=== PATIENT | female | born 1990 | race Caucasian/White ===

== ENCOUNTER 2019-04-03 16:40 | Outpatient (CLI) | payer BC, SELFPAY ==
[2019-04-03] VITALS (9 sets, daily range): BP systolic 126–142; BP diastolic 70–78; PULSE 75–83; TEMP 98.7; BMI 36.6
[2019-04-03 17:44] LABS: Hemoglobin 12.3 g/dL (12.0-15.0); Mean Corp Hgb Conc 33.2 g/dL (32-36); Mean Corpuscular Hgb 31.4 pg (27.0-32.0); Mean Corpuscular Volume 94.4 fL (81-99); Mean Platelet Vol. 10.5 fl (6.2-12.0); Platelet Count 240 K/mm3 (150-450); RBC Distribution Width CV 13.6 % (11.6-14.6); RBC Distribution Width SD 44.9 fl (35.1-43.9); Red Blood Count 3.92 M/mm3 (4.2-5.4); White Blood Count 11.4 K/mm3 (4.4-11.0)
[2019-04-03 18:16] LABS: Prothrombin Time (Protime)PT. 12.7 SECONDS (11.7-14.9)
[2019-04-03 18:26] LABS: AST(SGOT) 28 U/L (15-37); Alanine Aminotransfer ALT/SGPT 47 U/L (13-56); Creatinine, Serum 0.58 mg/dL (0.55-1.02); EST Glomerular Filtration Rate 132 mL/min (>60); Est Glom Filt Rate - Afr Amer 159 mL/min (>60); Estimated Creatinine Clearance 140.43 ml/min; Uric Acid 4.5 mg/dL (2.6-6.0)
[2019-04-03 18:29] LABS: Protein, Urine (Random) 9.9 mg/dL (<11.9); Protein:Creat Ratio 169 mg/g CRE (0-200)
--- NOTE | 2019-04-04 05:34 | OB.TRI.NOTE ---
History of Present Illness Date of Service: 04/03/19 Was patient seen by the physician?: No Reason For Visit: Edema, possible preeclampsia Date of Service: 04/03/19 Final OEWN: 06/14/19 Gestational age: 29 Weeks and 5 Days History of Present Illness: presented from office. Intermittent WADE, edema, leg pain., Allergies No Known Allergies Allergy (Verified 04/03/19 17:08) Laboratory Studies: Laboratory Tests 04/03/19 04/03/19 04/03/19 Range/Units 17:50 17:20 17:20 WBC (4.4-11.0) K/mm3 RBC (4.2-5.4) M/mm3 Hgb (12.0-15.0) g/dL Hct (37-47) % MCV (81-99) fL MCH (27.0-32.0) pg MCHC (32-36) g/dL RDW Std Deviation (35.1-43.9) fl RDW Coeff of Alta (11.6-14.6) % Plt Count (150-450) K/mm3 MPV (6.2-12.0) fl PT 12.7 (11.7-14.9) SECONDS INR 1.0 APTT 26.0 (24.1-36.2) Seconds Creatinine 0.58 (0.55-1.02) mg/dL Estim Creat Clear Calc 140.43 ml/min Est GFR (MDRD) Af Amer 159 (>60) mL/min Est GFR (MDRD) Non-Af 132 (>60) mL/min Uric Acid 4.5 (2.6-6.0) mg/dL AST 28 (15-37) U/L ALT 47 (13-56) U/L U Random Total Protein 9.9 (<11.9) mg/dL Urine Creatinine 58.60 (NO RANGE EST.) mg/dL Protein/Creatinin Ratio 169 (0-200) mg/g CRE 04/03/19 Range/Units 17:20 WBC 11.4 H (4.4-11.0) K/mm3 RBC 3.92 L (4.2-5.4) M/mm3 Hgb 12.3 (12.0-15.0) g/dL Hct 37.0 (37-47) % MCV 94.4 (81-99) fL MCH 31.4 (27.0-32.0) pg MCHC 33.2 (32-36) g/dL RDW Std Deviation 44.9 H (35.1-43.9) fl RDW Coeff of Alta 13.6 (11.6-14.6) % Plt Count 240 (150-450) K/mm3 MPV 10.5 (6.2-12.0) fl PT (11.7-14.9) SECONDS INR APTT (24.1-36.2) Seconds Creatinine (0.55-1.02) mg/dL Estim Creat Clear Calc ml/min Est GFR (MDRD) Af Amer (>60) mL/min Est GFR (MDRD) Non-Af (>60) mL/min Uric Acid (2.6-6.0) mg/dL AST (15-37) U/L ALT (13-56) U/L U Random Total Protein (<11.9) mg/dL Urine Creatinine (NO RANGE EST.) mg/dL Protein/Creatinin Ratio (0-200) mg/g CRE NST - FHR Rate Baby A Baseline: 145 Variability:: Moderate Accelerations:: 15 x 15 Decelerations:: None NST Reactive:: Yes, Appropriate for gestational age FHR Category:: Category I Uterine Activity:: quiet Impression/Plan 28 YOF @ 29 5/7 weeks for possible preeclampsia Labs normal BPs normal here Home w/ preeclampsia precautions, d/w her in office decrease sodium, push water, compression stockings. Close follow up. Ok for off work tomorrow if needs b/c of leg pain and edema of right slightly more than left will get dupplex US of that tomorrow (too late tonight unless goes to ED and since suspicion is low ok to wait). Patient agrees w/ plan
== END 2019-04-03 19:00 | disposition home or self-care (01) ==
LOC: WPOUT 16:46 → WP 16:46
PROVIDERS: PCP Family Medicine; Referring Provider Obstetrics & Gynecology; Visit Provider Obstetrics & Gynecology
DX: O26.893 Other specified pregnancy related conditions, third trimester (principal); R51 Headache; M79.606 Pain in leg, unspecified; R60.0 Localized edema; Z3A.29 29 weeks gestation of pregnancy
CPT/HCPCS: 36415; 59025; 59050; 82565; 82570; 84156; 84450; 84460; 84550; 85027; 85610; 85730; 99218; G0378

== ENCOUNTER → 2019-04-04 08:54 | Outpatient (CLI) | payer BC, SELFPAY ==
[2019-04-03 17:07] VITALS: BMI 36.6
--- NOTE | 2019-04-04 08:59 | VDLE_ITS ---
Reason For Study: Swelling RIGHT LEFT GSV is normal. CFV is compressible, spontaneous, phasic, CFV is compressible, spontaneous, phasic, competent, and demonstrates normal competent and demonstrates normal augmentation. augmentation. FV is compressible, spontaneous, phasic, competent and demonstrates normal augmentation. POP V is compressible, spontaneous, phasic, competent and demonstrates normal augmentation. T/P Trunk is compressible. PTV is compressible. RT PerV is compressible. Procedure Exam performed in department. A preliminary report was called and/or faxed to [facility]. Interpretation Summary Deep veins of the right lower extremity are patent and compressible segmentally. There is no evidence of right lower extremity deep vein thrombosis. Valvular competence appears intact within the proximal deep venous system on the right . The right great saphenous vein appears patent and compressible segmentally. Ordering Physician: Thelma Artis Referring Physician: Kandice Balderas Performed By: Amy Long RVT
== END ==
PROVIDERS: PCP Family Medicine; Referring Provider Obstetrics & Gynecology; Visit Provider Obstetrics & Gynecology
DX: M79.89 Other specified soft tissue disorders (principal)
CPT/HCPCS: 93971

== ENCOUNTER 2019-04-27 20:35 | Outpatient (CLI) | payer BC, SELFPAY ==
[2019-04-03 17:07] VITALS: BMI 36.6
[2019-04-27 20:44] VITALS: BMI 37.3
[2019-04-27 20:51] VITALS: PULSE 69; O2SAT 97
[2019-04-27 20:52] VITALS: BP 161/101; PULSE 69; TEMP 36.6; O2SAT 97
[2019-04-27 21:03] VITALS: BP 153/97; PULSE 74
[2019-04-27 21:13] VITALS: BP 148/92; PULSE 73
[2019-04-27 21:21] LABS: Hematocrit 37.8 % (37-47); Mean Corp Hgb Conc 34.4 g/dL (32-36); Mean Corpuscular Hgb 32.5 pg (27.0-32.0); Mean Corpuscular Volume 94.5 fL (81-99); Mean Platelet Vol. 10.8 fl (6.2-12.0); Platelet Count 188 K/mm3 (150-450); RBC Distribution Width CV 13.4 % (11.6-14.6); RBC Distribution Width SD 45.9 fl (35.1-43.9); White Blood Count 10.4 K/mm3 (4.4-11.0)
[2019-04-27 21:29] VITALS: BP 144/93; PULSE 75
[2019-04-27 21:32] LABS: Partial Thromboplast Time 25.7 Seconds (24.1-36.2); Prothrombin Time (Protime)PT. 12.7 SECONDS (11.7-14.9)
[2019-04-27 21:35] LABS: AST(SGOT) 24 U/L (15-37); Alanine Aminotransfer ALT/SGPT 22 U/L (13-56); Creatinine, Serum 0.58 mg/dL (0.55-1.02); EST Glomerular Filtration Rate 132 mL/min (>60); Est Glom Filt Rate - Afr Amer 160 mL/min (>60); Estimated Creatinine Clearance 140.43 ml/min; Uric Acid 5.1 mg/dL (2.6-6.0)
[2019-04-27 21:45] VITALS: BP 147/92; PULSE 76
[2019-04-27] MEDS: Betamethasone/Betamethasone 30 MG/5 ML Vial 12 MG IM (22:03)
--- NOTE | 2019-04-27 22:07 | OB.TRI.HP_ITS ---
- Problem List (1) Elevated BP without diagnosis of hypertension Status: Acute (2) Edema of both feet Status: Acute History of Present Illness Date of Service: 04/27/19 Was patient seen by the physician?: Yes Reason For Visit: PINO OUT [facility] Date of Service: 04/27/19 Final OWEN: 06/14/19 Gestational age: 33 Weeks and 1 Days History of Present Illness: Patient is a 28 yo at 33.1 weeks gestation that came in to triage for evaluation of increased blood pressures at home last night and tonight. Patient was seen in office last week and [facility] labs were drawn. Labs wnl, but P/C ratio was 0.5. Patient scheduled weekly visits with weekly NSTs. She was to take BP at home 2-3x day and keep written log. Patient reports pressures reaching 160's/100 today. Denies any headaches, vision changes or epigastric pain. Bilateral feet 2+ edema. Patient denies any loss of fluid, vaginal bleeding or contractions. Positive movement. Allergies No Known Allergies Allergy (Verified 04/27/19 20:45) - Pertinent Past Medical History Medical History: Past Medical History (Last Updated 04/27/19 @ 22:19 by Taryn Calderón CNM) Anxiety Laboratory Studies: Laboratory Tests 04/27/19 04/27/19 04/27/19 Range/Units 21:10 21:10 21:10 WBC 10.4 (4.4-11.0) K/mm3 RBC 4.00 L (4.2-5.4) M/mm3 Hgb 13.0 (12.0-15.0) g/dL Hct 37.8 (37-47) % MCV 94.5 (81-99) fL MCH 32.5 H (27.0-32.0) pg MCHC 34.4 (32-36) g/dL RDW Std Deviation 45.9 H (35.1-43.9) fl RDW Coeff of Alta 13.4 (11.6-14.6) % Plt Count 188 (150-450) K/mm3 MPV 10.8 (6.2-12.0) fl PT 12.7 (11.7-14.9) SECONDS INR 1.0 APTT 25.7 (24.1-36.2) Seconds Creatinine 0.58 (0.55-1.02) mg/dL Estim Creat Clear Calc 140.43 ml/min Est GFR (MDRD) Af Amer 160 (>60) mL/min Est GFR (MDRD) Non-Af 132 (>60) mL/min Uric Acid 5.1 (2.6-6.0) mg/dL AST 24 (15-37) U/L ALT 22 (13-56) U/L Review of Systems Constitutional: Denies: Anorexia, Fever, Malaise Eyes: Denies: Blurred vision, Double vision, Vision Change Cardiovascular: Reports: Edema Respiratory: Denies: Cough, Shortness of Breath Gastrointestinal: Denies: Abdominal Pain Genitourinary: Denies: Dysuria Neurological: Denies: Blurred vision, Double vision, Headaches Physical Exam Vitals: Vital Signs Temp Pulse BP Pulse Ox 97.9 F 76 147/92 H 97 04/27/19 20:52 04/27/19 21:45 04/27/19 21:45 04/27/19 20:52 General: Alert, Oriented x3 Cardiovascular: Regular Rhythm Lungs: Clear to auscultation, Normal air movement Abdomen: Non Tender, Gravid, Obese Extremities:: Deep tendon reflexes - +2, Other - Edema bilateral feet and ankles Neurological: Cranial nerves II-XII grossly intact, Deep Tendon Reflexes 2+/4 and Symmetrical NST - FHR Rate Baby A Baseline: 135 Variability:: Moderate Accelerations:: 15 x 15 Decelerations:: None NST Reactive:: Yes FHR Category:: Category I Uterine Activity:: None noted Impression/Plan Patient is a 28 year old that is 33.1 weeks gestation here for increased blood pressures at home. Proteinuria (P/C ratio of 0.5) on Sunday in the office. A/P Increased BP with no diagnosis of hypertension PIH labs drawn and were wnl Celestone 12mg IM x1 given and patient will return tomorrow for 2nd dose NST- reactive, category 1 tracing Preeclampsia precautions given to patient and Continue plan of care for outpatient weekly OB visits and NSTs Patient to continue home blood pressures 2x/Day and record results Discharge home
== END 2019-04-27 22:17 | disposition home or self-care (01) ==
LOC: WPOUT 20:40 → WP 20:41
PROVIDERS: Advanced Practice Midwife; PCP Family Medicine; Visit Provider Obstetrics & Gynecology
DX: O26.893 Other specified pregnancy related conditions, third trimester (principal); R03.0 Elevated blood-pressure reading, without diagnosis of hypertension; O12.13 Gestational proteinuria, third trimester; O99.343 Other mental disorders complicating pregnancy, third trimester; F41.9 Anxiety disorder, unspecified; Z3A.33 33 weeks gestation of pregnancy
CPT/HCPCS: 36415; 59025; 59050; 82565; 84450; 84460; 84550; 85027; 85610; 85730; 96372; 99218; G0378; J0702

== ENCOUNTER 2019-04-28 21:10 | Outpatient (CLI) | payer BC, SELFPAY ==
[2019-04-27 20:44] VITALS: BMI 37.3
[2019-04-28 21:21] VITALS: BMI 37.8
[2019-04-28] MEDS: Betamethasone/Betamethasone 30 MG/5 ML Vial 12 MG IM (21:38)
--- NOTE | 2019-05-08 09:37 | OB.TRI.NOTE ---
History of Present Illness Date of Service: 04/29/19 Was patient seen by the physician?: No Reason For Visit: CELESTONE INJECTION Date of Service: 04/29/19 Gestational age: 33 2/7 Allergies No Known Allergies Allergy (Verified 04/28/19 21:22) - Pertinent Past Medical History Medical History: Past Medical History (Last Updated 04/27/19 @ 22:19 by Taryn Calderón CNM) Anxiety Impression/Plan 33 week high risk primigravida, preeclampsia without severe features, celestone injection
== END 2019-04-28 21:40 | disposition home or self-care (01) ==
LOC: WPOUT 21:12 → OBT 21:13
PROVIDERS: PCP Family Medicine; Referring Provider Obstetrics & Gynecology; Visit Provider Obstetrics & Gynecology
DX: O14.03 Mild to moderate pre-eclampsia, third trimester (principal); Z3A.33 33 weeks gestation of pregnancy
CPT/HCPCS: 96372; 99218; G0378; J0702

== ENCOUNTER 2019-05-13 09:20 | Outpatient (CLI) | payer BC, SELFPAY ==
[2019-05-13] VITALS (13 sets, daily range): BP systolic 123–154; BP diastolic 67–92; PULSE 84–100; TEMP 36.9–37.7; O2SAT 92–98; BMI 38.3
[2019-05-13 10:00] LABS: Hematocrit 39.1 % (37-47); Hemoglobin 13.3 g/dL (12.0-15.0); Mean Corpuscular Hgb 32.6 pg (27.0-32.0); Mean Corpuscular Volume 95.8 fL (81-99); Mean Platelet Vol. 10.7 fl (6.2-12.0); Platelet Count 167 K/mm3 (150-450); RBC Distribution Width CV 13.4 % (11.6-14.6); Red Blood Count 4.08 M/mm3 (4.2-5.4); White Blood Count 13.4 K/mm3 (4.4-11.0)
[2019-05-13 10:03] LABS: Protein, Urine (Random) 795.5 mg/dL (<11.9); Protein:Creat Ratio 5642 mg/g CRE (0-200)
[2019-05-13 10:10] LABS: International Normalized Ratio 0.9; Prothrombin Time (Protime)PT. 11.7 SECONDS (11.7-14.9)
[2019-05-13 10:11] LABS: Partial Thromboplast Time 25.6 Seconds (24.1-36.2)
[2019-05-13 10:12] LABS: AST(SGOT) 52 U/L (15-37); Alanine Aminotransfer ALT/SGPT 36 U/L (13-56); Creatinine, Serum 0.65 mg/dL (0.55-1.02); EST Glomerular Filtration Rate 114 mL/min (>60); Est Glom Filt Rate - Afr Amer 138 mL/min (>60); Estimated Creatinine Clearance 124.19 ml/min; Uric Acid 5.8 mg/dL (2.6-6.0)
[2019-05-13] MEDS: Acetaminophen 500 MG Tablet 1000 MG PO (14:46)
[2019-05-13 16:19] LABS: Hematocrit 39.4 % (37-47); Hemoglobin 13.2 g/dL (12.0-15.0); Mean Corp Hgb Conc 33.5 g/dL (32-36); Mean Corpuscular Hgb 31.9 pg (27.0-32.0); Mean Corpuscular Volume 95.2 fL (81-99); Mean Platelet Vol. 10.8 fl (6.2-12.0); Platelet Count 170 K/mm3 (150-450); RBC Distribution Width CV 13.3 % (11.6-14.6); RBC Distribution Width SD 46.5 fl (35.1-43.9); Red Blood Count 4.14 M/mm3 (4.2-5.4); White Blood Count 10.8 K/mm3 (4.4-11.0)
[2019-05-13 16:32] LABS: AST(SGOT) 45 U/L (15-37); Alanine Aminotransfer ALT/SGPT 37 U/L (13-56); Creatinine, Serum 0.59 mg/dL (0.55-1.02); EST Glomerular Filtration Rate 128 mL/min (>60); Est Glom Filt Rate - Afr Amer 155 mL/min (>60); Estimated Creatinine Clearance 136.82 ml/min; Uric Acid 5.9 mg/dL (2.6-6.0)
--- NOTE | 2019-05-13 20:04 | OB.TRI.NOTE ---
History of Present Illness Date of Service: 05/13/19 Was patient seen by the physician?: Yes Reason For Visit: R/O PREECLAMPSIA Date of Service: 05/13/19 Final OWEN: 06/14/19 Final OWEN Source: US <20 weeks Gestational age: 35 Weeks and 3 Days History of Present Illness: 29-year-old 2 para 0 at 35-3/7 weeks presents today for increased blood pressures. Patient has had preeclampsia without severe features for a couple of weeks. She is received betamethasone in the past x2. Today she reported increased blood pressures and 1 sent to labor and delivery for monitoring and labs. Complains of some epigastric pain that gets worse when she walks. She states this started this morning. She had a similar episode a couple of weeks ago that resolved after 1 day spontaneously. She states her pain is now 2 out of 10 in its more midline. Denies any current headache. She had a migraine headache 5 days ago. Has had good movement. She has had some pedal edema Allergies No Known Allergies Allergy (Verified 05/13/19 09:34) - Pertinent Past Medical History Medical History: Past Medical History (Last Updated 04/27/19 @ 22:19 by Taryn Calderón CNM) Anxiety Laboratory Studies: Laboratory Tests 05/13/19 05/13/19 05/13/19 Range/Units 16:13 16:13 09:49 WBC 10.8 (4.4-11.0) K/mm3 RBC 4.14 L (4.2-5.4) M/mm3 Hgb 13.2 (12.0-15.0) g/dL Hct 39.4 (37-47) % MCV 95.2 (81-99) fL MCH 31.9 (27.0-32.0) pg MCHC 33.5 (32-36) g/dL RDW Std Deviation 46.5 H (35.1-43.9) fl RDW Coeff of Alta 13.3 (11.6-14.6) % Plt Count 170 (150-450) K/mm3 MPV 10.8 (6.2-12.0) fl PT (11.7-14.9) SECONDS INR APTT (24.1-36.2) Seconds Creatinine 0.59 0.65 (0.55-1.02) mg/dL Estim Creat Clear Calc 136.82 124.19 ml/min Est GFR (MDRD) Af Amer 155 138 (>60) mL/min Est GFR (MDRD) Non-Af 128 114 (>60) mL/min Uric Acid 5.9 5.8 (2.6-6.0) mg/dL AST 45 H 52 H (15-37) U/L ALT 37 36 (13-56) U/L U Random Total Protein (<11.9) mg/dL Urine Creatinine (NO RANGE EST.) mg/dL Protein/Creatinin Ratio (0-200) mg/g CRE 05/13/19 05/13/19 05/13/19 Range/Units 09:49 09:49 09:30 WBC 13.4 H (4.4-11.0) K/mm3 RBC 4.08 L (4.2-5.4) M/mm3 Hgb 13.3 (12.0-15.0) g/dL Hct 39.1 (37-47) % MCV 95.8 (81-99) fL MCH 32.6 H (27.0-32.0) pg MCHC 34.0 (32-36) g/dL RDW Std Deviation 47.0 H (35.1-43.9) fl RDW Coeff of Alta 13.4 (11.6-14.6) % Plt Count 167 (150-450) K/mm3 MPV 10.7 (6.2-12.0) fl PT 11.7 (11.7-14.9) SECONDS INR 0.9 APTT 25.6 (24.1-36.2) Seconds Creatinine (0.55-1.02) mg/dL Estim Creat Clear Calc ml/min Est GFR (MDRD) Af Amer (>60) mL/min Est GFR (MDRD) Non-Af (>60) mL/min Uric Acid (2.6-6.0) mg/dL AST (15-37) U/L ALT (13-56) U/L U Random Total Protein 795.5 H (<11.9) mg/dL Urine Creatinine 141.00 (NO RANGE EST.) mg/dL Protein/Creatinin Ratio 5642 H (0-200) mg/g CRE Review of Systems Constitutional: Denies: Chills, Fever Eyes: Denies: Blurred vision Cardiovascular: Denies: Chest Pain Respiratory: Reports: Shortness of breath upon exertion. Denies: Cough Gastrointestinal: Denies: Constipation, Diarrhea, Dyspepsia, Nausea, Vomiting Skin: Denies: Rash Physical Exam Vitals: Vital Signs Temp Pulse BP Pulse Ox 98.8 F 86 141/91 H 96 05/13/19 15:26 05/13/19 15:26 05/13/19 15:26 05/13/19 12:24 NST - FHR Rate Baby A Baseline: 140 Variability:: Moderate Accelerations:: 15 x 15 Decelerations:: Variable - early in monitoring, NST Reactive:: Yes FHR Category:: Category I - for > 20 min before d/c Uterine Activity:: no regular ctxs Impression/Plan 29-year-old 2 para 0 at 35-3/7 weeks with preeclampsia without severe features. Patient has a mild headache today. Epigastric pain is a 2 out of 10 with resting. Labs are stable. Blood pressures are stable. She is discharged home to continue labetalol 100 mg p.o. twice daily. Return if any symptoms of severe preeclampsia. Follow-up in the office in 2 days as scheduled or return here or to the office as needed. Patient is comfortable with plan.
== END 2019-05-13 16:55 | disposition home or self-care (01) ==
LOC: WPOUT 09:21 → WP 09:22
PROVIDERS: PCP Family Medicine; Referring Provider Obstetrics & Gynecology; Visit Provider Obstetrics & Gynecology
DX: O14.03 Mild to moderate pre-eclampsia, third trimester (principal); O36.8330 Maternal care for abnormalities of the fetal heart rate or rhythm, third trimester, not applicable or unspecified; Z3A.35 35 weeks gestation of pregnancy
CPT/HCPCS: 36415; 59025; 59050; 82565; 82570; 84156; 84450; 84460; 84550; 85027; 85610; 85730; 99218; G0378

== ENCOUNTER 2019-05-15 11:45 | Inpatient (IN) | payer BC, SELFPAY ==
[2019-05-13 09:39] VITALS: BMI 38.3
[2019-05-15] VITALS (84 sets, daily range): BP systolic 94–172; BP diastolic 51–99; PULSE 70–102; RESP 16–22; TEMP 36.7–37.3; O2SAT 82–98; BMI 38.3
[2019-05-15 10:47] LABS: Hemoglobin 13.2 g/dL (12.0-15.0); Mean Corp Hgb Conc 33.8 g/dL (32-36); Mean Corpuscular Hgb 32.3 pg (27.0-32.0); Mean Corpuscular Volume 95.4 fL (81-99); Mean Platelet Vol. 10.5 fl (6.2-12.0); Platelet Count 160 K/mm3 (150-450); RBC Distribution Width CV 13.4 % (11.6-14.6); RBC Distribution Width SD 46.3 fl (35.1-43.9); Red Blood Count 4.09 M/mm3 (4.2-5.4); White Blood Count 8.3 K/mm3 (4.4-11.0)
[2019-05-15 10:56] LABS: International Normalized Ratio 0.9; Partial Thromboplast Time 25.5 Seconds (24.1-36.2); Prothrombin Time (Protime)PT. 11.8 SECONDS (11.7-14.9)
[2019-05-15 11:01] LABS: AST(SGOT) 31 U/L (15-37); Alanine Aminotransfer ALT/SGPT 31 U/L (13-56); EST Glomerular Filtration Rate 124 mL/min (>60); Est Glom Filt Rate - Afr Amer 151 mL/min (>60); Estimated Creatinine Clearance 134.54 ml/min
[2019-05-15 11:12] LABS: Protein, Urine (Random) 524.1 mg/dL (<11.9); Protein:Creat Ratio 4518 mg/g CRE (0-200)
[2019-05-15] MEDS: Labetalol 200 MG Tablet PO (12:05)
[2019-05-15] MEDS: Magnesium Sulfate 4gm/100mL 4 GM/100 ML IV.SOLN. IV (12:20)
[2019-05-15] MEDS: Lactated Ringers 1,000 ML 50 ML IV (12:20)
[2019-05-15] MEDS: Magnesium Sulfate 4gm/100mL 2 GM/50 ML IV.SOLN. IV (12:40)
[2019-05-15] MEDS: Magnesium Sulfate 20 GM/500 ML BAG IV (12:51)
[2019-05-15] MEDS: miSOPROStol 25 MCG TABLET VAGINAL (13:00)
[2019-05-15] MEDS: miSOPROStol 50 MCG TABLET VAGINAL (17:09)
[2019-05-15] MEDS: Acetaminophen 325 MG Tablet PO (17:50)
[2019-05-15] MEDS: fentaNYL 100 MCG/2 ML Ampul IV ×2 (18:42→20:45)
--- NOTE | 2019-05-15 18:48 | HP.PCM_ITS ---
History Date of Admission: 05/15/19 Final OWEN: 06/14/19 Final OWEN Source: US <20 weeks Gestational age: 35 Weeks and 5 Days History of this : This is a 29 year-old, 2 para 0 at 35-5/7 weeks gestation presents complaining of intermittent visual disturbances. She had a headache last night. It was down to a 3 out of 10 this morning. She was able to sleep last night. Reports feeling her vision just is not quite right, is not really blurry and she is not seeing double. She has intermittently a couple seconds of some white lights flashing in her vision. The epigastric pain she was having 2 days ago has resolved. At home she has been getting her blood pressures in the 140s to 150s over 90s to 100s range. She is had good movement. She came to the office today and was sent to labor and delivery for evaluation and repeat labs. Medical History: Medical History (Last Updated 04/27/19 @ 22:19 by Taryn Calderón CNM) Anxiety F41.9 Allergies No Known Allergies Allergy (Verified 05/13/19 09:34) Home Medications: Home Medications Vits [Prenatabs FA ] 1 tab PO DAILY 04/03/19 Acetaminophen/Butalbital/Caffe [Fioricet] 1 tab PO PRN PRN 05/13/19 Labetalol [Trandate] 100 mg PO BID 05/13/19 [place]-3 Fatty Acids/Fish Oil [Fish Oil 1,000 mg Capsule] 2 ea PO DAILY 05/13/19 Smoking Status: Former smoker Alcohol: None Number of Fetus(es): 1 NST - FHR Rate Baby A Baseline: normal Variability:: Moderate Accelerations:: 15 x 15 Decelerations:: None NST Reactive:: Yes FHR Category:: Category I Uterine Activity:: quiet History Past Pregnancies: Past Pregnancies Delivery Date Name GA/ Weeks Outcome Route Wt Infant Sex Labor Length Anesthesia Delivery Location Provider FOB Expected Infant Delivery Method: Spontaneous Vaginal Review of Systems Constitutional: Denies: Chills, Fever Eyes: Reports: - - occas scotoma for a few seconds intermittently. Denies: Blurred vision, Double vision Cardiovascular: Denies: Chest Pain Respiratory: Denies: Cough, Shortness of Breath Gastrointestinal: Denies: Abdominal Pain, Diarrhea, Nausea Neurological: Denies: Balance problems, Change in Speech, Confusion Physical Exam Vitals: Vital Signs Temp Pulse Resp BP Pulse Ox 98.2 F 80 18 126/74 H 98 05/15/19 13:00 05/15/19 18:29 05/15/19 16:40 05/15/19 18:29 05/15/19 18:28 General: Alert, Cooperative, No apparent distress Cardiovascular: Regular rate Lungs: Normal air movement Abdomen: Soft, Non Tender, Non-Distended, Gravid, Appropriate for Gestational Age Extremities:: Deep tendon reflexes - 2+, Other - edema 3+ pedal Neurological: Cranial nerves II-XII grossly intact, Deep Tendon Reflexes 2+/4 and Symmetrical LOGISTICS AND PLANNING MANAGER: Normal external genitalia Estimated gestational size: Appropriate for gestational size Presentation: Cephalic Assessment/Plan All Active Problems (Last Updated 04/27/19 @ 22:19 by Taryn Calderón CNM) Elevated BP without diagnosis of hypertension (Acute) Edema of both feet (Acute) This is a 29 year-old, at 35-3/7 weeks with preeclampsia with severe features. Patient complaining of headaches, some visual disturbances. Labs are basically stable but uric acid is up to 6. Her platelets are stable around 160. Several blood pressures in the severe range. Patient will be admitted for induction of labor. Magnesium prophylaxis is ordered. Rapid group B strep was sent. Estimated weight is less than 4000 g clinically and pelvis is clinically adequate to expect vaginal delivery. Encouraged epidural when pain increases. Procedure note: Thomas catheter was placed over stylette into the internal cervical loss in the usual sterile fashion. The balloon was inflated to 30 cc with normal saline. Patient and fetus tolerated the procedure well.
[2019-05-15 19:20] LABS: Group B Strep DNA By PCR POSITIVE (Negative); Probe Check PASS
[2019-05-15] MEDS: Oxytocin 30 units/NS 500 ml 30 UNITS/500 ML IV.SOLN IV (22:30)
[2019-05-16] VITALS (122 sets, daily range): BP systolic 101–177; BP diastolic 51–95; PULSE 68–116; RESP 16–22; TEMP 36.3–37.3; O2SAT 92–100
[2019-05-16] MEDS: fentaNYL 100 MCG/2 ML Ampul IV ×4 (00:10→10:09)
[2019-05-16] MEDS: Magnesium Sulfate 20 GM/500 ML BAG IV ×3 (00:20→20:12)
[2019-05-16] MEDS: Lactated Ringers 500 ML 999 ML IV (00:54)
--- NOTE | 2019-05-16 06:36 | NURSING ---
Reviewed and agreed with Manny WHITFIELD.
[2019-05-16] MEDS: Lactated Ringers 1,000 ML 50 ML IV ×2 (10:13→14:00)
[2019-05-16] MEDS: Cefazolin 2 GM in 0.9% Normal Saline 100 ML IV (11:45)
[2019-05-16] MEDS: Oxytocin 30 units/NS 500 ml 30 UNITS/500 ML IV.SOLN 167 UNITS IV (11:46)
--- NOTE | 2019-05-16 13:15 | PCM.OPRPT ---
Report of Operation Surgery/Procedure Performed:: Primary low transverse section Description of Surgical Findings:: Normal maternal uterus and adnexa Delivery Classification: Stat Final OWEN: 06/14/19 Gestational age: 35 Weeks and 6 Days topographic computator: Merna Armas Type of Anesthesia:: Epidural Date of Procedure: 05/16/19 Pre-Operative Diagnosis: (1) Severe preeclampsia (2) Non reassuring heart tracing Post-Operative Diagnosis: Same Indications: Patient was induced for severe preeclampsia and was on pitocin. She had a prolonged deceleration to the 60's. Typical maneuvers failed to improved the FHT's. Patient taken to the OR and FHR was in the 80's. Decision made to proceed with emergency . Indications for : Distress Description of Procedure: Patient taken to OR where epidural anesthesia was dosed. She was prepped and draped in normal sterile fashion in a dorsal supine position with a leftward tilt. After ensuring adequacy of anesthesia the Pfannensteil skin incision was made and carried through to the underlying fascia. The rectus muscles were in the midline and the peritoneum was entered bluntly. The uterus was incised in a transverse fashion and then incision extended with cephalocaudad traction. The fetus was vertex and the head was brought to the incision in the flexed position. With good fundal pressure the head easily delivered. Gentle traction placed on head to allow delivery of anterior & posterior shoulders. No excess traction placed on head. The body delivered easily. The 3VC cord was clamped and cut. The infant handed off to the waiting RN. The placenta was delivered w/ gentle traction and fundal massage and the uterus was exteriorized and cleared of all clots and debris. The uterine incision was closed with 2 of 1 vicryl sutures in a running locked fashion. A second imbricating layer of monocryl was placed. The uterus was returned to the peritoneal cavity. The pelvis was irrigated & then cleared of all clots and debris. The uterine incision was reexamined and found to be hemostatic. Some arnaldo was placed over the uterine incision due to the denuded areas. Gentle pressure was held on the patient's left fallopian tube due to bleeding. Minimal bovie cautery was used very superficially with care to avoid the lumen. Arnaldo was placed and again gentle pressure was used. Hemostasis of the left fallopian tube was confirmed. The parietal peritoneum was reapproximated with running vicryl suture. The fascia was closed with looped PDS suture in a running standard fashion. The subcutaneous tissue was examined & any bleeding bovie cauterized. The subcutaneous tissue was reapproximated with plain gut suture. The skin was closed in a subcuticular fashion by the INVESTIGATION DIV[employer]IEUT[employer]NT with me present in the labor and delivery suite. I performed the remainder of the procedure w/ assistance. Amniotic Membrane Rupture Type: Spontaneous Amniotic Fluid Description: Clear Placenta Disposition: [facility] Drain: Thomas to straight drain Fluids Replaced: 400ml Cord Entanglement: None Cord Vessel Description: 3 Vessels Esitmated Blood Loss (ml): 900ml Infant Gender: Female - Aman; weight = 5-6 (1 minute): 8 (5 minute): 8 Antibiotic Given: Ancef 2 grams IV x1, Zithromax 500 mg/5 mL X1 - Admit VTE Documentation VTE Present on Admission: No VTE Mechan Device Prophylaxis: SCD's VTE Pharm Prophylaxis ordered?: Yes
[2019-05-16] MEDS: Ketorolac 30 MG/ML Syringe IV ×2 (14:08→19:44)
[2019-05-16] MEDS: HYDROmorphone 1 MG/ML Syringe IV ×2 (14:32→17:46)
[2019-05-16] MEDS: Labetalol 100 MG Tablet PO (19:09)
--- NOTE | 2019-05-16 20:23 | NURSING ---
mild headache now and no blurred or double vision.
[2019-05-16] MEDS: oxyCODONE 5 MG Tablet PO (20:34)
[2019-05-16] MEDS: Senna/Docusate Sodium 1 Tablet PO (20:34)
--- NOTE | 2019-05-16 22:02 | NURSING ---
repositioned to right side and epidural cath removed blue tip intact.
--- NOTE | 2019-05-16 22:50 | NURSING ---
2119 pt getting lightheaded with blurred vision while sitting up with hand expression. pt laid down supine cool cloth given for forehead and bp 101/56, headache remains but lightheadedness resolving.
[2019-05-17] VITALS (32 sets, daily range): BP systolic 97–144; BP diastolic 53–85; PULSE 80–102; RESP 16–20; TEMP 36.9–37.9; O2SAT 84–99
[2019-05-17] MEDS: Lactated Ringers 1,000 ML 100 ML IV (00:30)
[2019-05-17] MEDS: oxyCODONE 5 MG Tablet PO ×4 (00:35→15:17)
--- NOTE | 2019-05-17 01:12 | NURSING ---
0025 pt c/o pain in abdomen shivering temp 98.8 repostioned to back c/o left thigh feeling like I ran a marathon and it hurts warm blanket obtained and placed on pt given kpad to use to abdomen, medicated with oxyir also. pt to painful to hand express 1 gtt obtained by self but pt to uncomfortable to do at present so grandmother going to feed formula.
[2019-05-17] MEDS: Ketorolac 30 MG/ML Syringe IV ×4 (01:27→19:31)
--- NOTE | 2019-05-17 02:53 | NURSING ---
iv rate decreased to 15/hr pt wanting more orally and output has been 400 last 2 hrs.
--- NOTE | 2019-05-17 04:54 | NURSING ---
pt states she can feel gas bubbles and is feeling better until moves then more painful. continues to have a headache but milder at present and no vision changes.
[2019-05-17] MEDS: Magnesium Sulfate 20 GM/500 ML BAG IV (05:23)
[2019-05-17 05:46] LABS: Hematocrit 33.1 % (37-47); Hemoglobin 10.9 g/dL (12.0-15.0); Mean Corp Hgb Conc 32.9 g/dL (32-36); Mean Corpuscular Hgb 32.2 pg (27.0-32.0); Mean Corpuscular Volume 97.6 fL (81-99); Mean Platelet Vol. 10.5 fl (6.2-12.0); POSITIVE COUNT YES; Platelet Count 135 K/mm3 (150-450); RBC Distribution Width CV 13.8 % (11.6-14.6); RBC Distribution Width SD 48.5 fl (35.1-43.9); Red Blood Count 3.39 M/mm3 (4.2-5.4)
--- NOTE | 2019-05-17 05:57 | NURSING ---
pt passing some gas this am.
[2019-05-17] MEDS: Senna/Docusate Sodium 1 Tablet PO (08:25)
[2019-05-17] MEDS: Enoxaparin 40 MG/0.4 ML Syringe SC (09:39)
--- NOTE | 2019-05-17 11:27 | NURSING ---
Addendum entered by Mandi Humphrey 05/17/19 14:01: May discontinue fluid restrictions at this time. Original Note: Dr Underwood notified of pt blood pressure 97/53 and feeling light headed. order to hold labetalol at this time. continue with order to d/c mag at 1130 and leave padron cath in at this time. will keep doctor updated.
[2019-05-17] MEDS: 0.9% Saline Lock 10 ML Syringe IV ×2 (11:32→19:31)
--- NOTE | 2019-05-17 16:09 | PCM.PN.OB ---
Subjective: Pain controlled. She feels light headed when she stands up. Her headache is improved. Overall she is feeling better. - Physical Exam Vitals/I&O's: Vital Signs Temp Pulse Resp BP Pulse Ox 98.6 F 102 H 18 112/68 97 05/17/19 15:25 05/17/19 15:25 05/17/19 15:25 05/17/19 15:25 05/17/19 13:41 Oxygen Delivery Method Room Air Weight: 245 lb Body Mass Index (BMI) 38.3 Intake and Output for Last 24 Hours 05/15/19 05/16/19 05/17/19 23:59 23:59 23:59 Intake Total 2456.00 / 2456.00 5094.12 / 5094.12 2678.08 / 2678.08 Output Total 750 / 750 4170 / 4170 4100 / 4100 Balance 1706.00 / 1706.00 924.12 / 924.12 -1421.92 / -1421.92 General: Alert, Oriented x3 Abdomen: Soft, Non Tender, Non-Distended - ff mid & below umb; inc - bandage c/d/i Extremities: No Calf Tenderness, Edema - pitting Neurological: Cranial nerves II-XII grossly intact Laboratory Results 05/17/19 05:35: WBC 13.0 H, RBC 3.39 L, Hgb 10.9 L, Hct 33.1 L, MCV 97.6, MCH 32.2 H, MCHC 32.9, RDW Std Deviation 48.5 H, RDW Coeff of Alta 13.8, Plt Count 135 L, MPV 10.5 Current Medications Acetaminophen (Tylenol) 1,000 mg PO Q8H PRN PRN PRN Reason: Pain Score 1-3/10;Temp>99.6F Bisacodyl (Dulcolax) 10 mg RECTAL UD PRN PRN Reason: If no BM Enoxaparin Sodium (Lovenox) 40 mg SC DAILY [facility] Last Admin: 05/17/19 09:39 Dose: 40 mg Documented by: Hydrocortisone (Hytone) 1 applic TOPICAL TID PRN PRN; Protocol PRN Reason: Discomfort Lactated Ringer's () 1,000 mls @ 100 mls/hr IV .Q10H [facility] Last Infusion: 05/17/19 11:42 Dose: Infused Documented by: Naloxone HCl 4 mg/ Dextrose 504 mls @ 0 mls/hr IV .Q0M PRN; Protocol PRN Reason: Respiratory depression Ibuprofen (Motrin) 600 mg PO Q6H PRN PRN PRN Reason: Pain Score 1-3/10 Ketorolac Tromethamine (Toradol (Bkc)) 30 mg IV Q6H [facility] Stop: 05/18/19 07:31 Last Admin: 05/17/19 13:37 Dose: 30 mg Documented by: Labetalol HCl (Trandate) 200 mg PO BID [facility] Last Admin: 05/17/19 15:35 Dose: Not Given Documented by: Methylergonovine Maleate (Methergine) 0.2 mg IM X1 PRN PRN Reason: Uterine Atony Naloxone HCl (Narcan) 0.02 mg IV Q1M PRN PRN Reason: RR <10 and pt unresponsive Ondansetron HCl (Zofran) 4 mg IV Q4H PRN PRN PRN Reason: Nausea Oxycodone HCl (Oxyir) 5 - 10 mg PO Q4H PRN PRN PRN Reason: Pain Score 4-10/10 Last Admin: 05/17/19 15:17 Dose: 5 mg Documented by: Prochlorperazine Edisylate (Compazine Iv) 10 mg IV Q6H PRN PRN PRN Reason: NAUSEA Senna/Docusate Sodium (Senokot-S, Kim-Colace) 0 tablet PO DAILY PRN PRN Reason: Constipation Last Admin: 05/17/19 08:25 Dose: 2 tablet Documented by: Simethicone (Mylicon) 80 mg PO PCHS PRN PRN Reason: Indigestion/stomach pain Last Admin: 05/17/19 13:38 Dose: 80 mg Documented by: Sodium Chloride () 5 - 15 ml IV UD PRN PRN Reason: SALINE FLUSH Last Admin: 05/17/19 11:32 Dose: 10 ml Documented by: Medical Necessity - Tobacco Use Smoking Status: Former smoker Assessment/Plan All Active Problems (Last Updated 04/27/19 @ 22:19 by Taryn Calderón CNM) Elevated BP without diagnosis of hypertension (Acute) Edema of both feet (Acute) POD#1 Severe preE - s/p magnesium sulfate, will monitor BP's Heme - HDS, cbc reviewe ID - AF, no signs infection - d/c padron GI - ADAT Routine care
[2019-05-18] VITALS (13 sets, daily range): BP systolic 114–149; BP diastolic 65–83; PULSE 75–105; RESP 16–18; TEMP 36.6–37.1; O2SAT 97–98
[2019-05-18] MEDS: Ketorolac 30 MG/ML Syringe IV ×2 (01:29→08:07)
[2019-05-18] MEDS: 0.9% Saline Lock 10 ML Syringe IV ×2 (01:29→08:08)
[2019-05-18] MEDS: Senna/Docusate Sodium 1 Tablet PO (08:06)
[2019-05-18] MEDS: Enoxaparin 40 MG/0.4 ML Syringe SC (09:46)
[2019-05-18] MEDS: Labetalol 100 MG Tablet PO ×2 (11:45→22:12)
--- NOTE | 2019-05-18 11:57 | NURSING ---
Patient just finished ambulating in room. Encouraged to continue to ambulate in room.
[2019-05-18] MEDS: Ibuprofen 600 MG Tablet PO (14:12)
--- NOTE | 2019-05-18 16:22 | PN.OBGYN_ITS ---
Subjective: Patient seen this morning & reported feeling much better. Headache resolved and pain controlled. - Physical Exam Vitals/I&O's: Vital Signs Temp Pulse Resp BP Pulse Ox 98.8 F 85 16 132/79 H 97 05/18/19 13:58 05/18/19 13:58 05/18/19 13:58 05/18/19 13:58 05/18/19 13:58 Oxygen Delivery Method Room Air Weight: 245 lb Body Mass Index (BMI) 38.3 Intake and Output for Last 24 Hours 05/16/19 05/17/19 05/18/19 23:59 23:59 23:59 Intake Total 5094.12 / 5094.12 2678.08 / 2678.08 Output Total 4170 / 4170 5150 / 5150 Balance 924.12 / 924.12 -2471.92 / -2471.92 General: Alert, Oriented x3 Abdomen: Soft, Non Tender, Non-Distended - ff mid & below umb; incision - bandage c/d/i Extremities: No Calf Tenderness, Edema - pitting - about stable Neurological: Cranial nerves II-XII grossly intact Current Medications Acetaminophen (Tylenol) 1,000 mg PO Q8H PRN PRN PRN Reason: Pain Score 1-3/10;Temp>99.6F Bisacodyl (Dulcolax) 10 mg RECTAL UD PRN PRN Reason: If no BM Enoxaparin Sodium (Lovenox) 40 mg SC DAILY REPLACED BY [facility] Last Admin: 05/18/19 09:46 Dose: 40 mg Documented by: Hydrocortisone (Hytone) 1 applic TOPICAL TID PRN PRN; Protocol PRN Reason: Discomfort Naloxone HCl 4 mg/ Dextrose 504 mls @ 0 mls/hr IV .Q0M PRN; Protocol PRN Reason: Respiratory depression Ibuprofen (Motrin) 600 mg PO Q6H PRN PRN PRN Reason: Pain Score 1-3/10 Last Admin: 05/18/19 14:12 Dose: 600 mg Documented by: Labetalol HCl (Trandate) 100 mg PO TID REPLACED BY [facility] Last Admin: 05/18/19 11:45 Dose: 100 mg Documented by: Methylergonovine Maleate (Methergine) 0.2 mg IM X1 PRN PRN Reason: Uterine Atony Naloxone HCl (Narcan) 0.02 mg IV Q1M PRN PRN Reason: RR <10 and pt unresponsive Ondansetron HCl (Zofran) 4 mg IV Q4H PRN PRN PRN Reason: Nausea Oxycodone HCl (Oxyir) 5 - 10 mg PO Q4H PRN PRN PRN Reason: Pain Score 4-10/10 Last Admin: 05/17/19 15:17 Dose: 5 mg Documented by: Prochlorperazine Edisylate (Compazine Iv) 10 mg IV Q6H PRN PRN PRN Reason: NAUSEA Senna/Docusate Sodium (Senokot-S, Kim-Colace) 0 tablet PO DAILY PRN PRN Reason: Constipation Last Admin: 05/18/19 08:06 Dose: 1 tablet Documented by: Simethicone (Mylicon) 80 mg PO PCHS PRN PRN Reason: Indigestion/stomach pain Last Admin: 05/17/19 13:38 Dose: 80 mg Documented by: Sodium Chloride () 5 - 15 ml IV UD PRN PRN Reason: SALINE FLUSH Last Admin: 05/18/19 08:08 Dose: 10 ml Documented by: Medical Necessity - Tobacco Use Smoking Status: Former smoker Assessment/Plan All Active Problems (Last Updated 04/27/19 @ 22:19 by Taryn Calderón CNM) Elevated BP without diagnosis of hypertension (Acute) Edema of both feet (Acute) POD#2 Severe preE - BP's had slightly increased so restarted labetalol Heme - HDS ID - no signs infection Routine care
[2019-05-18] MEDS: Acetaminophen 500 MG Tablet 1000 MG PO (16:39)
[2019-05-19] MEDS: Ibuprofen 600 MG Tablet PO ×2 (01:20→10:09)
[2019-05-19 01:25] VITALS: BP 133/94; PULSE 93; RESP 18; TEMP 36.6
[2019-05-19] MEDS: Acetaminophen 500 MG Tablet 1000 MG PO ×2 (04:12→11:57)
--- NOTE | 2019-05-19 07:35 | DCINST_ITS ---
Discharge Diet: No Restrictions Discharge Activity: Return to Normal Activity, May Not Drive - for 2 weeks, May not drive while taking narcotic pain medications., May Shower, May Take a Tub Bath - in 7 days. May resume sexual activity in: 4-6 weeks Lifting Restrictions: 20 pounds Additional Activity Instructions:: Nothing in the vagina for 4-6 weeks. You may return to work/school in 6 weeks. Call your doctor if your incision/area has: Continuous Slow Oozing, Sudden Increased Bleeding, Increased Pain/ Swelling, Increased Redness, Foul Smelling Discharge Call your doctor if you observe: Fever of 101 or Higher, Using more than one pad per hour - for 2 hours Suture Line Care: Avoid Pulling/Pushing, Avoid Pinching/Bending Cleanse incision/area with: Keep Dressing Clean & Dry Additional Instructions: If you experience any of the following, contact your healthcare provider. * Bleeding that soaks a pad every hour for 2 hours * Fever 100.4 or higher * Unrelieved incision or abdominal pain * Swelling, redness, discharge or bleeding from your incision or episiotomy site * Your incision begins to separate * Problems urinating (including inability to urinate or burning while urinating). * Visual changes * Severe headache * Flu-like symptoms * Pain or redness in one of both of your breasts * Pain, warmth, tenderness or swelling in your legs, especially the calf area * Frequent nausea and vomiting * Symptoms of depression or anxiety If you experience any of the following, call 911 or go to the nearest Emergency Room. * Chest pain * Problems breathing * Seizure activity * Partial or complete paralysis of a body part, slurred speech, weakness or drooping of the face, or a sudden inability to walk or hold your balance Allergies/Adverse Reactions: Allergies No Known Allergies Allergy (Verified 05/13/19 09:34) Medications to take at Discharge Vits [Prenatabs FA ] 1 tab PO DAILY 04/03/19 Labetalol [Trandate (Beta Arianna)] 100 mg PO BID 05/13/19 [place]-3 Fatty Acids/Fish Oil [Fish Oil 1,000 mg Capsule] 2 ea PO DAILY 05/13/19 Ibuprofen [Motrin] 600 mg PO Q6H PRN #60 tab 05/19/19 Oxycodone [Oxyir] 5 mg PO Q6H PRN PRN 7 Days #20 tablet 05/19/19 The following prescriptions were given: Ibuprofen [Motrin] 600 mg PO Q6H PRN #60 tab PRN Reason: Pain Transmission Status: Pending to [facility]/pharmacy #[id number] Oxycodone [Oxyir] 5 mg PO Q6H PRN PRN 7 Days #20 tablet PRN Reason: severe pain Transmission Status: Received by [id number] Follow-Up: Call to make an appointment with your doctor for an incision check in 1-2 weeks. You will also need a 6 week post- follow up appointment. Test results from this visit will be discussed in further detail at your follow- up appointment, if applicable. Please Follow Up With: Arely Underwood - Call to make an appointment for an incision check in 1-2 [phone] When: Call to schedule a postop visit in 1 and 6 weeks. Primary Care Physician: Kandice Balderas DO [Primary Care Provider] -
--- NOTE | 2019-05-19 07:35 | PN.OBGYN_ITS ---
Subjective: Pain well controlled, average lochia. Patient has had a bowel movement and is tolerating regular diet. Patient denies headache, epigastric pain or visual disturbances this morning. - Physical Exam Vitals/I&O's: Vital Signs Temp Pulse Resp BP Pulse Ox 97.9 F 93 18 133/94 H 98 05/19/19 01:25 05/19/19 01:25 05/19/19 01:25 05/19/19 01:25 05/18/19 19:55 Oxygen Delivery Method Room Air Weight: 111.13 kg Body Mass Index (BMI) 38.3 Intake and Output for Last 24 Hours 05/17/19 05/18/19 05/19/19 23:59 23:59 23:59 Intake Total 2678.08 / 2678.08 Output Total 5150 / 5150 Balance -2471.92 / -2471.92 General: Alert, Cooperative, No apparent distress Abdomen: Soft, Non-Distended, Tender - Appropriately Extremities: Edema - 3+ lower extremity Skin: Incision - Her bandage is clean dry and intact Current Medications Acetaminophen (Tylenol) 1,000 mg PO Q8H PRN PRN PRN Reason: Pain Score 1-3/10;Temp>99.6F Last Admin: 05/19/19 04:12 Dose: 1,000 mg Documented by: Bisacodyl (Dulcolax) 10 mg RECTAL UD PRN PRN Reason: If no BM Enoxaparin Sodium (Lovenox) 40 mg SC DAILY [facility] Last Admin: 05/18/19 09:46 Dose: 40 mg Documented by: Hydrocortisone (Hytone) 1 applic TOPICAL TID PRN PRN; Protocol PRN Reason: Discomfort Naloxone HCl 4 mg/ Dextrose 504 mls @ 0 mls/hr IV .Q0M PRN; Protocol PRN Reason: Respiratory depression Ibuprofen (Motrin) 600 mg PO Q6H PRN PRN PRN Reason: Pain Score 1-3/10 Last Admin: 05/19/19 01:20 Dose: 600 mg Documented by: Labetalol HCl (Trandate) 100 mg PO BID [facility] Last Admin: 05/18/19 22:12 Dose: 100 mg Documented by: Methylergonovine Maleate (Methergine) 0.2 mg IM X1 PRN PRN Reason: Uterine Atony Naloxone HCl (Narcan) 0.02 mg IV Q1M PRN PRN Reason: RR <10 and pt unresponsive Ondansetron HCl (Zofran) 4 mg IV Q4H PRN PRN PRN Reason: Nausea Oxycodone HCl (Oxyir) 5 - 10 mg PO Q4H PRN PRN PRN Reason: Pain Score 4-10/10 Last Admin: 05/17/19 15:17 Dose: 5 mg Documented by: Prochlorperazine Edisylate (Compazine Iv) 10 mg IV Q6H PRN PRN PRN Reason: NAUSEA Senna/Docusate Sodium (Senokot-S, Kim-Colace) 0 tablet PO DAILY PRN PRN Reason: Constipation Last Admin: 05/18/19 08:06 Dose: 1 tablet Documented by: Simethicone (Mylicon) 80 mg PO PCHS PRN PRN Reason: Indigestion/stomach pain Last Admin: 05/17/19 13:38 Dose: 80 mg Documented by: Sodium Chloride () 5 - 15 ml IV UD PRN PRN Reason: SALINE FLUSH Last Admin: 05/18/19 08:08 Dose: 10 ml Documented by: Medical Necessity - Tobacco Use Smoking Status: Former smoker Assessment/Plan All Active Problems (Last Updated 04/27/19 @ 22:19 by Taryn Calderón CNM) Elevated BP without diagnosis of hypertension (Acute) Edema of both feet (Acute) Postoperative day #3 status post section. Patient is doing well. is doing well. Patient desires discharge home today. Continue labetalol 100 mg p.o. twice daily. Call to schedule a virtual visit in 1 week. Call with blood pressures in severe range with other symptoms of preeclampsia. Patient is comfortable with plan.
--- NOTE | 2019-05-19 07:39 | PCM.DC.SUM ---
Discharge Date and Diagnosis Date of Admission: 05/15/19 Date of Discharge: 05/19/19 Hospital Course and Treatment Operations: - - Primary low transverse section with double layer closure of the uterine incision Summary of Care Provided: The patient is a 29 year old female was admitted on 05/15/2019 at 35 and 5/7 weeks station with preeclampsia with severe features. She underwent Cytotec, Thomas and Pitocin induction of labor. On 05/16/2019 at 35-6/7 weeks gestation she underwent a primary low transverse section due to nonreassuring heart tones remote from delivery. She had a prolonged deceleration. The section was performed without difficulty. By postoperative day #3 she was ambulating, urinating tolerating regular diet without difficulty. Her blood pressures were in the mildly elevated range with labetalol 100 mg p.o. twice daily. She was sent home on labetalol and with other routine postop instructions and prescriptions. She is to continue to check her blood pressures at home and follow-up in the office or via virtual visit within 1 week. I reviewed postop wound incision care. Patient is comfortable with plan. [] - Physical Exam Vitals/I&O's: Vital Signs Temp Pulse Resp BP Pulse Ox 97.9 F 93 18 133/94 H 98 05/19/19 01:25 05/19/19 01:25 05/19/19 01:25 05/19/19 01:25 05/18/19 19:55 Oxygen Delivery Method Room Air Weight: 111.13 kg Body Mass Index (BMI) 38.3 Intake and Output for Last 24 Hours 05/17/19 05/18/19 05/19/19 23:59 23:59 23:59 Intake Total 2678.08 / 2678.08 Output Total 5150 / 5150 Balance -2471.92 / -2471.92 Current Medications Acetaminophen (Tylenol) 1,000 mg PO Q8H PRN PRN PRN Reason: Pain Score 1-3/10;Temp>99.6F Last Admin: 05/19/19 04:12 Dose: 1,000 mg Documented by: Bisacodyl (Dulcolax) 10 mg RECTAL UD PRN PRN Reason: If no BM Enoxaparin Sodium (Lovenox) 40 mg SC DAILY [facility] Last Admin: 05/18/19 09:46 Dose: 40 mg Documented by: Hydrocortisone (Hytone) 1 applic TOPICAL TID PRN PRN; Protocol PRN Reason: Discomfort Naloxone HCl 4 mg/ Dextrose 504 mls @ 0 mls/hr IV .Q0M PRN; Protocol PRN Reason: Respiratory depression Ibuprofen (Motrin) 600 mg PO Q6H PRN PRN PRN Reason: Pain Score 1-3/10 Last Admin: 05/19/19 01:20 Dose: 600 mg Documented by: Labetalol HCl (Trandate) 100 mg PO BID [facility] Last Admin: 05/18/19 22:12 Dose: 100 mg Documented by: Methylergonovine Maleate (Methergine) 0.2 mg IM X1 PRN PRN Reason: Uterine Atony Naloxone HCl (Narcan) 0.02 mg IV Q1M PRN PRN Reason: RR <10 and pt unresponsive Ondansetron HCl (Zofran) 4 mg IV Q4H PRN PRN PRN Reason: Nausea Oxycodone HCl (Oxyir) 5 - 10 mg PO Q4H PRN PRN PRN Reason: Pain Score 4-10/10 Last Admin: 05/17/19 15:17 Dose: 5 mg Documented by: Prochlorperazine Edisylate (Compazine Iv) 10 mg IV Q6H PRN PRN PRN Reason: NAUSEA Senna/Docusate Sodium (Senokot-S, Kim-Colace) 0 tablet PO DAILY PRN PRN Reason: Constipation Last Admin: 05/18/19 08:06 Dose: 1 tablet Documented by: Simethicone (Mylicon) 80 mg PO PCHS PRN PRN Reason: Indigestion/stomach pain Last Admin: 05/17/19 13:38 Dose: 80 mg Documented by: Sodium Chloride () 5 - 15 ml IV UD PRN PRN Reason: SALINE FLUSH Last Admin: 05/18/19 08:08 Dose: 10 ml Documented by: Discharge Diet: No Restrictions Discharge Activity: Return to Normal Activity, May Not Drive - for 2 weeks, May not drive while taking narcotic pain medications., May Shower, May Take a Tub Bath - in 7 days. May resume sexual activity in: 4-6 weeks Additional Activity Instructions:: Nothing in the vagina for 4-6 weeks. You may return to work/school in 6 weeks. Call your doctor if your incision/area has: Continuous Slow Oozing, Sudden Increased Bleeding, Increased Pain/ Swelling, Increased Redness, Foul Smelling Discharge Call your doctor if you observe: Fever of 101 or Higher, Using more than one pad per hour - for 2 hours Suture Line Care: Avoid Pulling/Pushing, Avoid Pinching/Bending Cleanse incision/area with: Keep Dressing Clean & Dry Home Medications: Medications to take at Discharge Vits [Prenatabs FA ] 1 tab PO DAILY 04/03/19 Labetalol [Trandate (Beta Arianna)] 100 mg PO BID 05/13/19 [place]-3 Fatty Acids/Fish Oil [Fish Oil 1,000 mg Capsule] 2 ea PO DAILY 05/13/19 Ibuprofen [Motrin] 600 mg PO Q6H PRN #60 tab 05/19/19 Oxycodone [Oxyir] 5 mg PO Q6H PRN PRN 7 Days #20 tab 05/19/19 Following Prescrptions Were Given to Patient: Ibuprofen [Motrin] 600 mg PO Q6H PRN #60 tab PRN Reason: Pain Transmission Status: Received by [facility]/pharmacy #[id number] Oxycodone [Oxyir] 5 mg PO Q6H PRN PRN 7 Days #20 tab PRN Reason: severe pain Transmission Status: Re[facility] by [id number] Primary Care Physician: Kandice Balderas DO [Primary Care Provider] - Please Follow Up With: Arely Underwood - Call to make an appointment for an incision check in 1-2 [phone] When: Call to schedule a postop visit in 1 and 6 weeks. Medical Necessity - Tobacco Use Smoking Status: Former smoker Meaningful Use Info Meaningful Use Diagnoses (Choose all that apply): None applicable
[2019-05-19 09:50] VITALS: BP 132/91; BP 155/76; PULSE 100; RESP 18; TEMP 37.2
[2019-05-19 09:52] VITALS: BP 155/76; PULSE 100
[2019-05-19 09:57] VITALS: BP 132/91; PULSE 90
[2019-05-19] MEDS: Enoxaparin 40 MG/0.4 ML Syringe SC (10:10)
[2019-05-19] MEDS: Labetalol 100 MG Tablet PO (10:10)
[2019-05-19 12:37] VITALS: BP 134/91; PULSE 82
[2019-05-19 13:50] VITALS: BP 134/91
== END 2019-05-19 12:50 | disposition home or self-care (01) | DRG 788 ==
LOC: WPOUT 11:49 → WP 11:49
PROVIDERS: Obstetrics & Gynecology; Admitting Provider Obstetrics & Gynecology; PCP Family Medicine; Referring Provider Obstetrics & Gynecology; Visit Provider Obstetrics & Gynecology
DX: O76 Abnormality in fetal heart rate and rhythm complicating labor and delivery (principal); Z37.0 Single live birth; O14.14 Severe pre-eclampsia complicating childbirth; Z3A.35 35 weeks gestation of pregnancy; Z87.891 Personal history of nicotine dependence
CPT/HCPCS: 59025; 59050; 82565; 82570; 84156; 84450; 84460; 84550; 85027; 85610; 85730; 87653; 99218; J7120; A4216; G0378

== ENCOUNTER 2022-01-19 17:45 | Outpatient (CLI) | payer OTHER, SELFPAY ==
[2022-01-19] VITALS (19 sets, daily range): BP systolic 88–103; BP diastolic 54–58; PULSE 122–137; TEMP 38.7; O2SAT 95–98; BMI 33.1
[2022-01-19] MEDS: Acetaminophen 500 MG Tablet 1000 MG PO (19:13)
--- NOTE | 2022-01-20 07:43 | OB.TRI.NOTE ---
HPI - General HPI Narrative BANDAR ARAGON, is a 31 F who presents Maternal Data Information Final OWEN: 03/28/22 Gestational age: 30&2 PFSH PFSH Medical History (Updated 01/20/22 @ 07:[address] Arely Underwood MD) Anxiety Home Medications vits,calcium no.78-iron fumarate-folic acid 29 mg-1 mg tablet 1 tab PO DAILY 04/03/19 [History Last Taken 01/18/22 10:00] omega-3 fatty acids-fish oil 340 mg-1,000 mg capsule 2 ea PO DAILY 05/13/19 [History Last Taken 01/18/22 10:00] ferrous sulfate 325 mg (65 mg iron) tablet (Iron (ferrous sulfate)) 325 mg PO DAILY 01/19/22 [History Last Taken 01/18/22 10:00] vitamin B12 0.5 mg-folic acid 1 mg tablet 1 tab PO DAILY 01/19/22 [History Last Taken 01/18/22 10:00] Allergy/AdvReac Type Severity Reaction Status Date / Time No Known Allergies Allergy Verified 05/13/19 09:34 Social History Smoking Status: Former smoker History Elective abortions Hx Para 0 Spontaneous abortions Hx # Term Pregnancies Ectopic pregnancies Hx # Pregnancies Multiple births # of living children NST FHR Rate Baby A Baseline: 150 Variability:: Moderate Accelerations:: 15 x 15 Decelerations:: None NST Reactive:: Yes Uterine Activity:: quiet Assessment & Plan (1) Decreased movement: COMMENT: 30&2 PLAN: Plan reactive NST
== END 2022-01-19 19:30 | disposition home or self-care (01) ==
LOC: WPOUT 17:52 → WP 18:01
PROVIDERS: PCP Family Medicine; Visit Provider Obstetrics & Gynecology
DX: O36.8130 Decreased fetal movements, third trimester, not applicable or unspecified (principal); Z87.891 Personal history of nicotine dependence; Z3A.30 30 weeks gestation of pregnancy
CPT/HCPCS: 59025; 59050; 99218; G0378

== ENCOUNTER 2022-03-16 18:24 | Inpatient (IN) | payer OTHER, SELFPAY ==
[2022-03-16] VITALS (9 sets, daily range): BP systolic 104–134; BP diastolic 55–75; PULSE 66–103; RESP 14–20; TEMP 36.1–37.1; O2SAT 95–97; BMI 34.8
[2022-03-16 18:19] LABS: ROM Internal Control Test YES-OK TO RESULT pt. (Internal QC)
[2022-03-16 18:20] LABS: ROM Patient Test POSITIVE (Negative)
[2022-03-16] MEDS: Lactated Ringers 1,000 ML 999 ML IV (19:25)
[2022-03-16 19:32] LABS: Absolute Lymphocyte Count 1.45 X10^3/uL (0.83-4.51); Absolute Neutrophil Count 7.1 X10^3/uL (2.0-7.7); Basophil# 0.02 X10^3/uL; Basophil% 0.2 % (0-1); Eosinophil# 0.06 X10^3/uL; Eosinophils% 0.6 % (0-5); Hematocrit 31.6 % (37-47); Hemoglobin 10.1 g/dL (12.0-15.0); Lymphocyte # 1.45 X10^3/ul (0.83-4.51); Lymphocyte % 15.5 % (19-41); Mean Corpuscular Hgb 26.5 pg (27.0-32.0); Mean Corpuscular Volume 82.9 fL (81-99); Mean Platelet Vol. 11.3 fl (6.2-12.0); Monocyte# 0.45 X10^3/uL; Monocyte% 4.8 % (0-10); NRBC Flagged by Analyzer 0 % (0-5); Neutrophil % 76.2 % (47-70); Platelet Count 161 K/mm3 (150-450); RBC Distribution Width CV 14.2 % (11.6-14.6); RBC Distribution Width SD 42.1 fl (35.1-43.9); Red Blood Count 3.81 M/mm3 (4.2-5.4); White Blood Count 9.3 K/mm3 (4.4-11.0)
[2022-03-16] MEDS: Lactated Ringers 1,000 ML 150 ML IV (20:28)
--- NOTE | 2022-03-16 20:52 | PCM.HP.OB ---
HPI - General General Date of Admission: 03/16/22 Date of Service: 03/16/22 Chief Complaint: SROM HPI Narrative BANDAR ARAGON, is a 31 F who presents at 38w2d with SROM. Scheduled section for next week. She is not having pain or feeling ctx's. No vb. Good FM. No pre e symptoms. PFSH PFS Medical History (Updated 03/16/22 @ 20:[address] Jacquelin Mccullough, ) Anxiety Depression Pre-eclampsia Home Medications vits,calcium no.78-iron fumarate-folic acid 29 mg-1 mg tablet 1 tab PO DAILY 04/03/19 [History Last Taken 01/18/22 10:00] omega-3 fatty acids-fish oil 340 mg-1,000 mg capsule 2 ea PO DAILY 05/13/19 [History Last Taken 01/18/22 10:00] vitamin B12 0.5 mg-folic acid 1 mg tablet 1 tab PO DAILY 01/19/22 [History Last Taken 01/18/22 10:00] Allergy/AdvReac Type Severity Reaction Status Date / Time No Known Allergies Allergy Verified 03/16/22 18:19 Surgical History (Updated 03/16/22 @ 20:[address] Jacquelin Mccullough, ) History of gynecologic surgery History of surgery Previous section Social History Smoking Status: Former smoker History Elective abortions Hx Para 1 Spontaneous abortions Hx # Term Pregnancies Ectopic pregnancies Hx # Pregnancies Multiple births # of living children NST FHR Rate Baby A FHR Category:: Category I Vital Signs Vital Signs Vital Signs: 03/16/22 18:12 03/16/22 18:12 03/16/22 18:12 Temperature Temperature Source Temporal Pulse Rate 103 H Respiratory Rate Blood Pressure 134/74 H Blood Pressure Mean BP Systolic 134 BP Diastolic 74 Blood Pressure Source Blood Pressure Position Blood Pressure Location Pulse Ox Oxygen Delivery Method 03/16/22 18:12 03/16/22 18:12 03/16/22 18:38 Temperature 98.8 F 98.8 F Temperature Source Temporal Pulse Rate 103 H Respiratory Rate 16 Blood Pressure 134/74 H Blood Pressure Mean 94 BP Systolic BP Diastolic Blood Pressure Source Monitor Blood Pressure Position Sitting Blood Pressure Location Left Arm Pulse Ox 97 97 Oxygen Delivery Method Room Air Weight Weight: 229 lb Body Mass Index (BMI) 34.8 Physical Exam Const alert and no apparent distress General Appearance: comfortable HEENT normocephalic Resp normal respiratory effort GI soft to palpation and non-tender GI Narrative: [facility] Labs Labs: Blood Type AB POSITIVE Antibody Screen NEGATIVE Hct 31.6 % (37-47) L Hgb 10.1 g/dL (12.0-15.0) L Hep Bs Antigen Non-Reactive (Nonreactive) HIV 1&2 Antibody Non-Reactive (Nonreactive) Group B Strep DNA POSITIVE (Negative) H Rhogam given: No Assessment & Plan (1) 38 weeks gestation of : PLAN: Scheduled repeat section with sterilization for next week who presents with SROM. Patient declines cervical exam as she is not feeling ctx's. Routine pre op care. Ancef ordered. Discussed r/b/a to repeat section with bilateral salpingectomy with patient and she desires to proceed. (2) History of pre-eclampsia: (3) SROM (spontaneous rupture of membranes): (4) History of section: (5) Obesity affecting : (6) History of depression:
[2022-03-16] MEDS: Acetaminophen 500 MG Tablet 1000 MG PO (21:07)
[2022-03-16] MEDS: Sodium Citrate/Citric Acid 30 ML UDC PO (21:07)
[2022-03-16] MEDS: Cefazolin 2 GM in 0.9% Normal Saline 100 ML IV (21:22)
--- NOTE | 2022-03-16 21:48 | FALS_PTH ---
PATIENT: BANDAR ARAGON LOC: [facility] U#:[id number] AGE/SX: 31/F ROOM: WP007 RE03/16/[address]: Dr. Jacquelin Mccullough DO : 1990 BED: 1 DIS: 03/18/2022 SPEC #: [id number] RECD: 03/16/22 22:32 STATUS: ASH SAMEER #: [id number] JOHANNA: 03/16/22 21:[address]: Jacquelin Mccullough DEPT: SURGICAL PATHOLOGY RECD BY: Brittany Petty ENTERED: 03/17/22 08:14 SP TYPE: FALL TUBES OTHR DR: Dr. Kandice Balderas DO Tissues: Fallopian tube Procedures: Surgery Specimen Level II HEADER OPERATION: Tubal ligation PRE-OP DIAGNOSIS: Sterilization TISSUE SUBMITTED: Fallopian tubes, right tube has tie around MICROSCOPIC DIAGNOSIS Bilateral fallopian tubes, salpingectomy: Bilateral fallopian tubes, no pathologic diagnosis. SJ:lorena 03/20/2022 MICROSCOPIC DESCRIPTION Slides are reviewed. GROSS DESCRIPTION Received in fixative is one container labeled with the patient's name and designated bilateral fallopian tubes. The specimen consists of two fragments of fallopian tubes. One fragment measures 2.5 cm and 1 cm in diameter. No fimbrial end is identified. This fragment is serially sectioned and totally submitted in cassette 1. The other fragment with fimbrial end measures 7 cm in length and 1 cm in diameter. No mass lesions are identified. Lacquer Mixer sections are submitted in cassette 2. / AM:lorena 03/17/2022 TC:4 CPT: 39573 x2
--- NOTE | 2022-03-16 22:51 | OP.PCM_ITS ---
Problems Associated Problem List Diagnoses (1) 38 weeks gestation of : (2) History of pre-eclampsia: (3) SROM (spontaneous rupture of membranes): (4) History of section: (5) Obesity affecting : (6) History of depression: (7) Request for sterilization: Report of Operation Date of Procedure: 03/16/22 Pre-Operative Diagnosis: 38 week gestation, single IUP, SROM, history prior section, request for sterilization Post-Operative Diagnosis: As above Surgery/Procedure Performed:: RLTCS via pfannenstiel incision Bilateral salpingectomy Description of Surgical Findings:: Fascia adherent to rectus muscles. Rectus muscles adherent in the midline. Omental adhesions to the peritoneum. Bowel adhesions to the left ovary and fimbriated ends of the fallopian tubes. Normal appearing uterus and bilateral adnexa. Normal appearing placenta with 3 VC. VMI with apgars 8,9 and weighing 9 lb 8.5 oz. Surgeon: Jacquelin Mccullough help desk specialist: Henry WILLINGHAM Type of Anesthesia: Spinal Special Medications: None Specimen's removed: Placenta Bilateral fallopian tubes Drains: Thomas Estimated Blood Loss (mL): 500 Fluids Replaced: 1000 mL Description of Procedure: The patient was taken to the operating room where spinal anesthesia was induced. She was prepped and draped in the dorsal position with a leftward tilt. A Pfannenstiel skin incision was made with a scalpel and this was carried down to the underlying layer of fascia. The fascia was incised in the midline. The fascia was dissected laterally using Oneal scissors. The fascia was dissected off the rectus muscles with a combination of sharp and blunt dissection. The rectus muscles were adherent and entered in the midline using a Amanda clamp to make an opening. The peritoneum was then elevated and a clear space was found, and the peritoneum was entered sharply with good visualization of the bladder. The peritoneal incision and rectus muscles were further with blunt dissection using lateral traction. A bladder blade was inserted. A low transverse incision was made on the uterus with a scalpel. The uterine incision was extended using traction both cephalad and caudad. The head of the infant was elevated and flexed, and delivered through the hysterotomy, followed by the shoulders and the body of the without any force, delayed, or traction. Loose nuchal cord x1 was noted and reduced during delivery. The cord was clamped and cut after a slight delay. A vigorous viable male was handed off to the awaiting nursery staff. The placenta was removed with manual extraction. The uterus was cleared of all clot and debris. The uterus was exteriorized. The uterine incision was closed with 1-0 Vicryl in a running locked fashion. Confirmed with the patient that she desired sterilization prior to surgery and at time of surgery. She understands that sterilization is permanent irreversible with a risk of regret. The right fallopian tube was followed out to the fimbriated end using Cornish clamps. The LigaSure device was used to serially clamp, cauterized, and transected along the mesosalpinx hugging adjacent to the tube until reaching the level of the cornua. Once at the level of the cornua the fallopian tube was transected. On the left side the fallopian tube was adhered to the bowel. The bowel was also adhered to the left ovary. Starting at the level of the cornua the left mesosalpinx was serially clamped, cauterized, and transected to remove a 3 cm segment of the left fallopian tube. The fimbriated ends of the left fallopian tube were left remaining given significant adhesions to the bowel. The uterus was placed back into the abdomen. Several additional asasai-di-nveco sutures using 1-0 Vicryl placed along the hysterotomy for hemostasis. Hemostasis was noted of the adnexa and hysterotomy. Gurdeep was placed over the hysterotomy and lower uterine segment. The peritoneum was unable to be closed due to omental adhesions to the peritoneum. The rectus muscles were noted to be hemostatic. The fascia was closed with strata fix in a running fashion. Subcutaneous space was irrigated and made hemostatic with Bovie cautery. The subcutaneous space was reapproximated with 3-0 Vicryl. The skin was closed with 4 Monocryl subcuticular fashion. A dressing was placed. Instrument, sharp, sponge counts were correct. The patient was taken to recovery room in stable condition. time: 2147 Loan Servicing Representative Henry WILLINGHAM assisted with the entire procedure: draping patient, delivery of , and closure. Grafts/Implants Used: None Procedure Start Time: 21:38 Procedure Stop Time: 22:44 Complications None Admit VTE Documentation VTE Present on Admission: No VTE Mechan Device Prophylaxis: SCD's
[2022-03-16] MEDS: Oxytocin 15 Units/NS 250ml 15 UNITS/250 ML IV.SOLN 83 UNITS IV (23:15)
[2022-03-16 23:24] LABS: Pathology Specimen OB SEE PATHOLOGY REPORT
[2022-03-17] VITALS (13 sets, daily range): BP systolic 102–134; BP diastolic 51–74; PULSE 57–91; RESP 14–18; TEMP 35.8–36.7; O2SAT 96–98
[2022-03-17] MEDS: Ketorolac 30 MG/ML Syringe IV ×4 (00:16→18:36)
[2022-03-17] MEDS: Ondansetron 4 MG/2 ML Vial IV (02:07)
[2022-03-17] MEDS: Lactated Ringers 1,000 ML 100 ML IV (02:16)
[2022-03-17] MEDS: Acetaminophen 500 MG Tablet 1000 MG PO ×4 (03:38→21:08)
[2022-03-17 04:44] LABS: Hematocrit 29.7 % (37-47); Hemoglobin 9.2 g/dL (12.0-15.0); Mean Corpuscular Volume 83.9 fL (81-99); Mean Platelet Vol. 11.3 fl (6.2-12.0); Platelet Count 146 K/mm3 (150-450); RBC Distribution Width SD 42.9 fl (35.1-43.9); Red Blood Count 3.54 M/mm3 (4.2-5.4)
[2022-03-17] MEDS: LACTATED RINGERS 500 ML 999 ML IV (07:00)
--- NOTE | 2022-03-17 08:25 | PCM.PN.OB ---
Subjective Subjective Doing well per patient and nursing staff. Ambulating and taking PO without difficulty. Voiding and passing flatus. Pain controlled. , services for assistance. Denies headache, visual changes, chest pain, shortness of breath, leg pain or increased bleeding. Lochia normal. Objective Data Objective Data Vital Signs: Vital Signs Temp Pulse Resp BP Pulse Ox O2 Del Method 97.1 F L 69 16 102/65 98 Room Air 03/17/22 08:16 03/17/22 08:16 03/17/22 08:16 03/17/22 08:16 03/17/22 08:16 03/17/22 08:16 Oxygen Delivery Method Room Air Weight: 229 lb Body Mass Index (BMI) 34.8 Intake & Output: Intake and Output for Last 24 Hours 03/15/22 03/16/22 03/17/22 23:59 23:59 23:59 Intake Total 2014 250 / 250 Output Total 1150 / 1150 Balance 865 / 865 250 / 250 Lab / Micro Data Result Diagrams: 03/17/22 04:35 Labs: Laboratory Results - last 24 hr 03/16/22 18:00: Vag Amniotic Fld Detect POSITIVE H 03/16/22 19:20: WBC 9.3, RBC 3.81 L, Hgb 10.1 L, Hct 31.6 L, MCV 82.9, MCH 26.5 L, MCHC 32.0, RDW Std Deviation 42.1, RDW Coeff of Alta 14.2, Plt Count 161, MPV 11.3, Immature Gran % (Auto) 2.700 H, Neut % (Auto) 76.2 H, Lymph % (Auto) 15.5 L, [place] % (Auto) 4.8, Eos % (Auto) 0.6, Baso % (Auto) 0.2, Absolute Neuts (auto) 7.1, Absolute Lymphs (auto) 1.45, Nucleated RBC % 0 03/16/22 19:20: Blood Type AB POSITIVE, Antibody Screen NEGATIVE 03/17/22 04:35: WBC 10.0, RBC 3.54 L, Hgb 9.2 L, Hct 29.7 L, MCV 83.9, MCH 26.0 L, MCHC 31.0 L, RDW Std Deviation 42.9, RDW Coeff of [place]ta 14.0, Plt Count 146 L, MPV 11.3 ROS Constitutional Constitutional: Reports systems reviewed and no addt'l complaints, except as documented; Denies headache(s) Eyes Eyes: Denies acute decrease in peripheral vision, blurry vision or change in vision ENT HEENT: Reports systems reviewed and no addt'l complaints, except as documented Cardiovascular Cardiovascular: Denies chest pain or dizziness Respiratory/Chest Respiratory/Chest: Denies cough, dyspnea, dyspnea on exertion, shortness of breath at rest or shortness of breath with exertion Gastrointestinal Gastrointestinal: Denies abdominal pain, diarrhea, nausea or vomiting Genitourinary Genitourinary: Denies abdominal discomfort Musculoskeletal Musculoskeletal: Denies limited range of motion Integumentary Integumentary: Reports systems reviewed and no addt'l complaints, except as documented Neurologic Neurologic: Reports systems reviewed and no addt'l complaints, except as documented Psychiatric Psychiatric: Reports systems reviewed and no addt'l complaints, except as documented Endocrine Endocrinology: Reports systems reviewed and no addt'l complaints, except as documented Hematologic/Lymphatic Hematologic/Lymphatic: Reports systems reviewed and no addt'l complaints, except as documented Allergic/Immunologic Allergic/Immunologic: Reports systems reviewed and no addt'l complaints, except as documented Physical Exam Const alert and oriented x3 General Appearance: cooperative Orientation / Consciousness: awake, oriented to person, oriented to place and oriented to time Exam Limitations: no limitations HEENT normocephalic Head and Scalp: normal to inspection, normocephalic and atraumatic Face and Sinus: normal facial exam Eyes General Eye: normal appearance of both eyes Neck full ROM Chest Chest: symmetrical chest wall rise Resp normal respiratory effort and normal air movement Auscultation: clear to auscultation bilaterally Cardio regular rate, regular rhythm, S1 normal heart sound, S2 normal heart sound, no murmurs, no rub, no gallops and no clicks GI non-tender GI Narrative: Dressing dry and intact Auscultation: hypoactive bowel sounds appearance of the vagina normal Bladder / Kidney Exam: no CVA tenderness Back/Spine normal ROM Extremity normal to inspection and full ROM Skin no rashes or lesions noted Neuro oriented x3, CN's II-XII intact bilaterally and moves all extremities Sensorium / Orientation: awake, alert and oriented to person Motor Exam: clonus absent Deep Tendon Reflexes: Rt Patellar (L4): 2+ and Lt Patellar (L4): 2+ Assessment & Plan (1) Request for sterilization: (2) History of depression: (3) Delivery by section: PLAN: POD#1 PLAN: Plan 1) Routine postoperative care 2) Pain management 3) Ferrous sulfate 325mg PO once daily for acute blood loss anemia 4) I&O padron in place, good output, discontinue 5) vitals stable 6) Planning D/C home tomorrow
[2022-03-17] MEDS: Enoxaparin 40 MG/0.4 ML Syringe SC (09:48)
[2022-03-17] MEDS: 0.9% Saline Lock 10 ML Syringe IV ×3 (09:48→18:36)
[2022-03-17] MEDS: Senna/Docusate Sodium 1 Tablet PO (09:49)
[2022-03-17] MEDS: Ferrous Sulfate 325 MG Tablet PO (12:21)
--- NOTE | 2022-03-17 18:00 | CASEMGMT ---
Social Work Brief Assessment Labor and Delivery Unit Patient Address: [facility] [address], [place] [address] Phone number: [phone] Date of Referral/Notification: 03/17/2022; 0830 Referred By: Verbal notification by nursing staff Date of Intervention: 03/17/2022; approximately 1730 Reason for Referral: Maternal history of depression, anxiety and Informant: Medical record and mother of baby (MOB) Erika Wood; mother of baby's mother Michelle Fernandez present with MOB's permission History: RAYMON is a 31-year-old female, to the father of baby (FOB) Lorenzo Wood. No reports of any type of domestic violence or safety concerns. MOB denied any safety concerns upon admission. RAYMON is 3, para 1 now 2 after delivering baby tulio Wood on 03/16/2022. Delivery via unscheduled section at 38.2 weeks gestation. weight 9 pounds 9 ounces. Apgars 8 and 9 at 1 and 5 minutes of life respectively. RAYMON has an older son at home Aman Wood born 05/16/2019. RAYMON is a [id number] mother at this point and FOB works for [employer]. RAYMON reportedly has a history of depression, anxiety and also depression. MOB never reported the depression to providers. No history of any suicidal ideation. No reported history of substance use issues. Assessment: Met with MOB in room, introducing to self and social work role. MOB's mother and present with patient's permission. RAYMON reports she and her mother are extremely close and talk with each other every day and throughout the day. MOB reports a good support system from the FOB and MOB's mother. There is additional family for support as well. MOB denies any concerns with housing, transportation or baby supplies. Educated MOB to mood and anxiety disorders, risk factors and importance of seeking out help and support should symptoms arise. MOB expressed understanding and agreement to seek out help and support. MOB reports that she does attempt self-care and taking time for self when able. Provided MOB with packet on mood and anxiety disorders for additional resources and referrals if needed. MOB denies any concerns with home-going. No voiced concerns by nursing staff regarding parent-child interactions or bonding. MOB had a bright affect, good eye contact, and talkative. Emotional support and supportive encouragement provided. Plan: MOB and infant will discharge home when ready. Information and resources provided on mood and anxiety disorders. MOB has indicated with but support system now should symptoms arise and will become distressing. No further needs requested or indicated. -CHER Johnson, SOILS ENGINEER *This note was generated with [email or web address] software. It may contain incorrect words, spelling, and punctuation that were not noted in review of the chart prior to signing*
[2022-03-17] MEDS: Ibuprofen 600 MG Tablet PO (23:40)
[2022-03-18] MEDS: oxyCODONE 5 MG Tablet PO ×2 (01:37→08:38)
[2022-03-18 01:38] VITALS: BP 108/67; PULSE 84; RESP 16; TEMP 36.5
[2022-03-18] MEDS: Acetaminophen 500 MG Tablet 1000 MG PO ×2 (03:33→10:06)
[2022-03-18] MEDS: Ibuprofen 600 MG Tablet PO ×2 (05:50→11:36)
[2022-03-18 08:20] VITALS: BP 101/62; PULSE 78; RESP 16; TEMP 36.7; O2SAT 97
[2022-03-18] MEDS: Enoxaparin 40 MG/0.4 ML Syringe SC (10:06)
[2022-03-18] MEDS: Senna/Docusate Sodium 1 Tablet PO (10:06)
--- NOTE | 2022-03-18 10:45 | PCM.PN.OB ---
Subjective Subjective Doing well per patient and nursing staff. Ambulating and taking PO without difficulty. Voiding and passing flatus. Pain increased and taking tylenol, motrin, and oxycodone. , services for assistance. Denies headache, visual changes, chest pain, shortness of breath, leg pain or increased bleeding. Lochia normal. Tearful today due to increased pain and not feeling that she can do everything she used to do. No depression or thoughts of self harm or harming baby. Objective Data Objective Data Vital Signs: Vital Signs Temp Pulse Resp BP Pulse Ox O2 Del Method 98.1 F 78 16 101/62 97 Room Air 03/18/22 08:20 03/18/22 08:20 03/18/22 08:20 03/18/22 08:20 03/18/22 08:20 03/18/22 08:20 Oxygen Delivery Method Room Air Weight: 229 lb Body Mass Index (BMI) 34.8 Intake & Output: Intake and Output for Last 24 Hours 03/16/22 03/17/22 03/18/22 23:59 23:59 23:59 Intake Total 2014 1496.67 / 1496.67 Output Total 1150 / 1150 1700 / 1700 Balance 865 / 865 -203.33 / -203.33 Lab / Micro Data Result Diagrams: 03/17/22 04:35 ROS Constitutional Constitutional: Reports systems reviewed and no addt'l complaints, except as documented; Denies headache(s) Eyes Eyes: Denies acute decrease in peripheral vision, blurry vision or change in vision ENT HEENT: Reports systems reviewed and no addt'l complaints, except as documented Cardiovascular Cardiovascular: Denies chest pain or dizziness Respiratory/Chest Respiratory/Chest: Denies cough, dyspnea, dyspnea on exertion, shortness of breath at rest or shortness of breath with exertion Gastrointestinal Gastrointestinal: Denies abdominal pain, diarrhea, nausea or vomiting Genitourinary Genitourinary: Denies abdominal discomfort Musculoskeletal Musculoskeletal: Denies limited range of motion Integumentary Integumentary: Reports systems reviewed and no addt'l complaints, except as documented Neurologic Neurologic: Reports systems reviewed and no addt'l complaints, except as documented Psychiatric Psychiatric: Reports systems reviewed and no addt'l complaints, except as documented Endocrine Endocrinology: Reports systems reviewed and no addt'l complaints, except as documented Hematologic/Lymphatic Hematologic/Lymphatic: Reports systems reviewed and no addt'l complaints, except as documented Allergic/Immunologic Allergic/Immunologic: Reports systems reviewed and no addt'l complaints, except as documented Physical Exam Const alert and oriented x3 General Appearance: cooperative Orientation / Consciousness: awake, oriented to person, oriented to place and oriented to time Exam Limitations: no limitations HEENT normocephalic Head and Scalp: normal to inspection, normocephalic and atraumatic Face and Sinus: normal facial exam Eyes General Eye: normal appearance of both eyes Neck full ROM Chest Chest: symmetrical chest wall rise Resp normal respiratory effort and normal air movement Auscultation: clear to auscultation bilaterally Cardio regular rate, regular rhythm, S1 normal heart sound, S2 normal heart sound, no murmurs, no rub, no gallops and no clicks GI normal to inspection, nondistended, normoactive bowel sounds and non-tender GI Narrative: dressing dry and intact appearance of the vagina normal Bladder / Kidney Exam: no CVA tenderness Back/Spine normal ROM Extremity normal to inspection and full ROM Skin no rashes or lesions noted Neuro oriented x3 and moves all extremities Sensorium / Orientation: awake, alert and oriented to person Motor Exam: clonus absent Deep Tendon Reflexes: Rt Patellar (L4): 2+ and Lt Patellar (L4): 2+ Assessment & Plan (1) Acute blood loss anemia: (2) Postoperative pain: (3) Delivery by section: (4) Request for sterilization: (5) Obesity affecting : (6) History of depression: PLAN: Plan 1) Routine PP care 2) Pain management 3) I&O 4) Ferrous sulfate 325mg PO once daily 5) Emotional support provided, getting good support with family to help at home. 6) Follow up in 1 wek and 6 weeks 7) D/C home
--- NOTE | 2022-03-18 10:45 | PCM.DC.SUM ---
Providers Date of Admission: 03/16/22 Primary Care Physician: Dr. Kandice Balderas DO Reason For Visit: REPEAT C- SECTION Diagnosis Discharge Diagnosis (1) Request for sterilization: Status: Acute Code(s): Z30.2 - Encounter for sterilization (2) History of depression: Status: Acute Code(s): Z86.59 - Personal history of other mental and behavioral disorders (3) Delivery by section: Status: Acute Plan: POD#1 Medications at Discharge Home Medications vits,calcium no.78-iron fumarate-folic acid 29 mg-1 mg tablet 1 tab PO DAILY 04/03/19 acetaminophen 500 mg tablet 1,000 mg PO Q6H #0 tabs 03/18/22 ferrous sulfate 325 mg (65 mg iron) tablet (FeroSul) 325 mg PO DAILY@1200 #30 tabs 03/18/22 ibuprofen 600 mg tablet 600 mg PO Q6H #30 tabs 03/18/22 oxycodone 5 mg tablet 5 - 10 mg PO Q4H PRN PRN Pain Score 4-10 7 days #10 tabs 03/18/22 sennosides 8.6 mg-docusate sodium 50 mg tablet (Stool Softener-Stimulant Laxative) 1 - 2 tab PO DAILY #30 tabs 03/18/22 simethicone 80 mg chewable tablet 80 mg PO PCHS PRN Indigestion/stomach pain #20 tabs 03/18/22 Hospital Course Summary of Care Provided Hospital Course: Presented on 03/16/22 with spontenaous rupture of membranes. Repeat section with bilateral salpingectomy. Acute blood loss anemia. course uncomplicated. Discharge home on postoperative day #2 Weight / BMI Weight Weight: 229 lb Body Mass Index (BMI) 34.8 ABG / Lab / Microbiology Data Result Diagrams: 03/17/22 04:35 Meaningful Use Info Meaningful Use Diagnoses (Choose all that apply): None applicable Discharge Plan Admission Admit Date/Time: 03/16/22 18:24 Primary Reason for Your Visit: Repeat section, bilateral salpingectomy Attending Provider: Jacquelin Mccullough Primary Care Provider: Kandice Balderas Instructions Patient Instructions: Breastfeed Holds, After a Discharge Orders/Prescriptions Prescriptions: New acetaminophen 500 mg Tablet 1,000 mg PO Q6H Qty: 0 0RF ferrous sulfate [FeroSul] 325 mg (65 mg iron) Tablet 325 mg PO DAILY@1200 Qty: 30 0RF ibuprofen 600 mg Tablet 600 mg PO Q6H Qty: 30 0RF sennosides-docusate sodium [Stool Softener-Stimulant Laxat] 8.6-50 mg Tablet 1 - 2 tab PO DAILY Qty: 30 0RF simethicone 80 mg Tablet,Chewable 80 mg PO PCHS PRN (Reason: Indigestion/stomach pain) Qty: 20 0RF oxycodone 5 mg Tablet 5 - 10 mg PO Q4H PRN PRN (Reason: Pain Score 4-10) 7 Days Qty: 10 0RF Continued vit,[id number] 1 TABLET tablet 1 tab PO DAILY Discontinued omega-3 fatty acids-fish oil 1 EACH capsule 2 ea PO DAILY vitamin [id number]-[id number] acid 0.5-1 mg Tablet 1 tab PO DAILY Referrals / Follow Up: Kandice Balderas DO [Primary Care Provider] - Jacquelin Mccullough DO [Med Staff - Active Staff] - (1-2 weeks for incision check. 6 weeks for PP visit) Disposition Disposition (needs filled in before D/C Order can be placed): Home, Self Care
[2022-03-18] MEDS: Ferrous Sulfate 325 MG Tablet PO (11:53)
--- NOTE | 2022-03-18 15:14 | CASEMGMT ---
SW updated staff that patient is clear for discharge per WP SW Note. Brigitte KWON
== END 2022-03-18 12:10 | disposition home or self-care (01) | DRG 784 ==
LOC: WPOUT 18:30 → WP 18:31
PROVIDERS: Admitting Provider Obstetrics & Gynecology; PCP Family Medicine; Visit Provider Obstetrics & Gynecology
DX: O34.211 Maternal care for low transverse scar from previous cesarean delivery (principal); D62 Acute posthemorrhagic anemia; O69.81X0 Labor and delivery complicated by cord around neck, without compression, not applicable or unspecified; Z37.0 Single live birth; O90.81 Anemia of the puerperium; Z87.891 Personal history of nicotine dependence; Z30.2 Encounter for sterilization; Z86.59 Personal history of other mental and behavioral disorders; Z3A.38 38 weeks gestation of pregnancy; O99.214 Obesity complicating childbirth
CPT/HCPCS: 59025; 59050; 84112; 85025; 85027; 86850; 86900; 86901; 88302; 99221; J7120; A4216; G0378; J2405